=== PATIENT | male | born 1980 | race African-American/Black ===

== ENCOUNTER 2019-10-03 18:55 | Inpatient (IN) | payer MEDICAID ==
[~2019-10-03] VITALS: Ht 167.6 cm; Wt 176.0 kg
[2019-10-03] MEDS ORDERED: KETOROLAC 60MG/2ML VIAL IM ONE (20:00)
[2019-10-03] MEDS ORDERED: HYDROCODONE/ACETAMINOPHEN 10/325MG TABLET PO ONE (23:45)
[2019-10-04 01:37] LABS: BASOPHILS % 0.7 % (0.0-2.0); HEMATOCRIT. 33.9 % (42.0-52.0); HEMOGLOBIN. 11.4 g/dL (14.0-18.0); LYMPHOCYTES % 13.9 % (20.0-50.0); MEAN CORPUSCULAR HEMOGLOBIN 28.7 pg (28.0-32.0); MEAN CORPUSCULAR VOLUME 85.7 fL (80.0-94.0); MEAN PLATELET VOLUME 8.1 fl (7.4-10.4); MONOCYTES % 9.9 % (2.0-8.0); NEUTROPHILS % 74.5 % (40.0-76.0); PLATELET 175 x1000/uL (130-400); RED BLOOD CELL COUNT 3.96 mill/uL (4.7-6.1); RED CELL DISTRIBUTION WIDTH 15.8 % (11.6-14.6)
[2019-10-04 01:38] LABS: CHLORIDE 109 mEq/L (98-107)
[2019-10-04 04:14] LABS: CLARITY URINE CLOUDY (CLEAR); COLOR URINE YELLOW (YELLOW); KETONES URINE NEGATIVE (NEGATIVE); LEUKOCYTE ESTERASE URINE NEGATIVE (NEGATIVE); NITRITE URINE NEGATIVE (NEGATIVE); OCCULT BLOOD URINE NEGATIVE (NEGATIVE); PROTEIN URINE NEGATIVE (NEGATIVE)
[2019-10-04 08:50] VITALS: BP 136/84
[2019-10-04] MEDS ORDERED: KETOROLAC 30MG/ML VIAL IV PRN (09:45)
[2019-10-04] MEDS: HYDROCODONE/ACETAMINOPHEN 10/325MG TABLET PO PRN ×2 (10:11→16:30)
[2019-10-04 12:00] VITALS: BP 127/72
[2019-10-04 16:00] VITALS: BP 149/89
[2019-10-04] MEDS ORDERED: ENOXAPARIN 40MG/0.4ML SYR SUBCUT SCH ×2 (16:00→16:45)
[2019-10-04] MEDS ORDERED: ONDANSETRON HCL 4MG/2ML INJ IV PRN (16:45)
[2019-10-04] MEDS ORDERED: ZOLPIDEM TARTRATE 5MG TABLET PO PRN (16:45)
[2019-10-04] MEDS ORDERED: CLONIDINE 0.1MG TABLET PO PRN (16:45)
[2019-10-04] MEDS ORDERED: MAGNESIUM HYDROXIDE 400MG/5ML 30ML UDC PO PRN (16:45)
[2019-10-04] MEDS ORDERED: DIPHENHYDRAMINE 50MG/ML VIAL IV PRN (16:45)
[2019-10-04] MEDS ORDERED: DOCUSATE SODIUM 100MG CAPSULE PO PRN (16:45)
[2019-10-04] MEDS ORDERED: ACETAMINOPHEN 325MG TABLET PO PRN ×2 (16:45)
[2019-10-04 20:00] VITALS: BP 156/76
[2019-10-04] MEDS: ENOXAPARIN 40MG/0.4ML SYR SUBCUT SCH (21:37)
[2019-10-05] VITALS: BP 151/79
[2019-10-05] MEDS: HYDROCODONE/ACETAMINOPHEN 10/325MG TABLET PO PRN ×3 (02:25→17:01)
[2019-10-05 04:00] VITALS: BP 145/75
[2019-10-05 08:38] VITALS: BP 138/82
[2019-10-05] MEDS: ENOXAPARIN 40MG/0.4ML SYR SUBCUT SCH ×2 (09:32→21:22)
[2019-10-05 12:16] VITALS: BP 173/93
[2019-10-05 16:13] VITALS: BP 160/86
[2019-10-05 20:00] VITALS: BP 139/79
[2019-10-06] VITALS (7 sets, daily range): BP systolic 128–159; BP diastolic 63–92
[2019-10-06] MEDS: HYDROCODONE/ACETAMINOPHEN 10/325MG TABLET PO PRN ×3 (02:54→13:43)
[2019-10-06] MEDS: ENOXAPARIN 40MG/0.4ML SYR SUBCUT SCH ×2 (09:36→20:32)
== END 2019-10-06 23:21 | DRG 347 ==
LOC: ER 18:55 → 5WST 10-04 02:15 → ENRESERV 10-04 07:13 → 5WST 10-05 05:30 → 6EST 10-05 17:51
PROVIDERS: ADMIT Internal Medicine; ATTEND Internal Medicine
DX: S32.019A Unspecified fracture of first lumbar vertebra, initial encounter for closed fracture (principal); G82.50 Quadriplegia, unspecified; E66.01 Morbid (severe) obesity due to excess calories; E44.1 Mild protein-calorie malnutrition; S32.029A Unspecified fracture of second lumbar vertebra, initial encounter for closed fracture; S32.049A Unspecified fracture of fourth lumbar vertebra, initial encounter for closed fracture; W05.0XXA Fall from non-moving wheelchair, initial encounter; I10 Essential (primary) hypertension; Y92.410 Unspecified street and highway as the place of occurrence of the external cause; Z91.81 History of falling; Z86.61 Personal history of infections of the central nervous system; Z98.2 Presence of cerebrospinal fluid drainage device; Z68.44 Body mass index [BMI] 60.0-69.9, adult; Z59.0 Homelessness; Y93.89 Activity, other specified; Y99.8 Other external cause status
CPT/HCPCS: 36415; 71250; 73030; 73120; 73552; 73560; 73590; 73610; 73620; 74176; 80053; 81003; 85025; 93005; 93970; 97162; 97166; 97530; 97535; 99285; J1650; J1885